=== PATIENT | male | born 1955 | race Two or more races ===

== ENCOUNTER → 2024-10-03 | Outpatient (CLI) | payer MEDICARE, BC, SELFPAY ==
[2024-10-03 09:50] LABS: Basophils # (Auto) 0.1 Thou/mm3 (0.0-0.2); Basophils % (Auto) 1 % (0-2.5); Eosinophils # (Auto) 0.4 Thou/mm3 (0.0-0.5); Eosinophils % (Auto) 5 % (0-10); Hematocrit 38.9 % (41.0-53.0); Hemoglobin 13.2 g/dL (13.5-16.0); Immature Granulocytes % (Auto) 1 % (0-0); Immature Granulocytes Auto 0.09 Thou/mm3 (0.00-0.00); Lymphocytes # (Auto) 1.2 Thou/mm3 (1.0-4.8); Lymphocytes % (Auto) 15 % (10-50); Mean Corpuscular HGB Conc 33.9 g/dl (31.0-37.0); Mean Corpuscular Volume 80 fL (80-100); Monocytes # (Auto) 0.5 Thou/mm3 (0.0-0.8); Monocytes % (Auto) 6 % (0-12); Neutrophils # (Auto) 5.7 Thou/mm3 (1.8-7.7); Neutrophils % (Auto) 72 % (37-80); Nucleated Red Blood Cell % 0 /100 WBC (0); Platelet Count 171 Thou/mm3 (140-440); RDW Standard Deviation 41.8 fL (35.1-43.9); Red Blood Count 4.89 Miln/mm3 (4.50-5.90); White Blood Count 7.8 Thou/mm3 (3.8-10.6)
[2024-10-03 10:09] LABS: Collection Type, Urine Clean Catch
[2024-10-03 10:11] LABS: Glucose Estimated Average 194 mg/dL (80-131); Hemoglobin A1C 8.4 % Hgb (4.8-6.0)
[2024-10-03 10:14] LABS: Albumin, Serum 4.5 gm/dL (3.4-4.8); Anion Gap 10 (7-16); BUN/Creatinine Ratio 19 Ratio (12-20); Blood Urea Nitrogen 31 mg/dL (9-23); Calcium 8.9 mg/dL (8.3-10.6); Calcium (Corrected) 8.9 mg/dL (8.5-10.1); Carbon Dioxide 26.2 mMol/L (20.0-31.0); Chloride 104 mMol/L (98-107); Creatinine (Component) 1.6 mg/dL (0.6-1.3); Glucose 155 mg/dL (74-106); Osmolality,Calculated 288 (275-295); Phosphorous 2.7 mg/dL (2.4-5.1); Potassium 4.6 mMol/L (3.4-5.1); Sodium 140 mMol/L (136-145); eGFR 47 See Note
[2024-10-03 11:03] LABS: Bilirubin,Urine Negative (Negative); Blood,Urine 1+ (Negative); Clarity,Urine Clear (Clear/Hazy); Color,Urine Lt-Yellow (Lt Yel-Yel); Glucose, Urine 2+ (Negative); Ketones,Urine Negative (Negative); Leukocyte Esterase,Urine Negative (Negative); Nitrite,Urine Negative (Negative); Protein,Urine 1+ (Neg - Trace); RBC,Urine 3 /hpf (0-3); Specific Gravity,Urine 1.019 (1.001-1.035); Squamous Epithelial Cell,Urine < 1 /hpf (0-5); Urobilinogen,Urine Negative mg/dL (0.0-1.0); WBC,Urine 1 /hpf (0-5)
[2024-10-03 11:05] LABS: Creatinine,Random Urine 101 mg/dL (30-125); Protein Total, Random Urine 110 mg/dL (1-14)
[2024-10-08 22:03] LABS: Albumin 4.1 g/dL (3.8-4.8); Alpha-1-Globulin 0.3 g/dL (0.2-0.3); Alpha-2-Globulin 0.8 g/dL (0.5-0.9); Beta-1-Globulin 0.4 g/dL (0.4-0.6); Beta-2-globulin 0.5 g/dL (0.2-0.5); Gamma Globulin 0.9 g/dL (0.8-1.7)
== END | disposition home or self-care (01) ==
PROVIDERS: PCP Internal Medicine; Referring Provider Internal Medicine Nephrology; Visit Provider Internal Medicine Nephrology
DX: R80.9 Proteinuria, unspecified (principal); E11.9 Type 2 diabetes mellitus without complications
CPT/HCPCS: 36415; 80069; 81001; 82570; 83036; 84155; 84156; 84165; 85025; 86334

== ENCOUNTER 2024-11-17 16:55 | Inpatient (IN) | payer MEDICARE, BC, SELFPAY ==
[2024-11-17 16:56] VITALS: BMI 41.6
[2024-11-17 17:04] VITALS: BP 116/74; PULSE 88; RESP 18; TEMP 36.5; O2SAT 99; BMI 34.7
--- NOTE | 2024-11-17 17:21 | XR_ITS ---
Examination: CT abdomen and pelvis without contrast. Coronal 3-D reconstructions. Sagittal 2-D reconstructions. Date and time of exam:November 17, 2024, 1829 hours Comparison February 20, 2020 INDICATIONS: Nausea vomiting diarrhea beginning 1500 hours today CTDI: vol (mGy): 11.3 DLP: (mGycm): 708 Technique: Axial images of the abdomen have been obtained, 3 mm slice thickness Intravenous contrast material has not been administered. Low dose protocols were performed. One or more of the following dose reduction techniques were used; automated exposure control, adjustment of the mA and/or KV according to patient size, use of iterative reconstruction technique. Findings: No focal liver or splenic lesions No gallstones No pancreatic mass Mild nodular thickening left adrenal gland Moderate renal parenchymal scar formation, 3 mm lower pole right renal calculus Perinephric stranding, no hydronephrosis or ureteral calculi Normal appendix No bowel obstruction Colonic diverticulosis, no diverticulitis Marked thickening of the urinary bladder wall up to 14 mm 7 mm bladder calculus Transverse posterior dimension 4.5 cm Transpedicular lumbar fusion L3-L5 with satisfactory alignment IMPRESSION: 3 mm lower pole right renal calculus, no hydronephrosis or ureteral calculi Moderate bilateral renal parenchymal scar formation Normal appendix 7 mm bladder calculus Marked thickening of the urinary bladder wall, differential would include cystitis Colonic diverticulosis, no diverticulitis
--- NOTE | 2024-11-17 17:22 | PD.EDRME ---
Rapid Medical Screening Exam RME Arrival date/time: 11/17/24 16:55 This is a case of 68-year-old male who came in in the emergency room due to abdominal pain nausea vomiting for 1 day patient have history of diabetes and gastroparesis Chief Complaint: Abdominal Pain Vital signs: Vital Signs Temperature 97.7 F 11/17/24 17:04 Pulse Rate 88 11/17/24 17:04 Respiratory Rate 18 11/17/24 17:04 Blood Pressure 116/74 11/17/24 17:04 Pulse Oximetry (%) 99 11/17/24 17:04 Oxygen Delivery Method Room Air 11/17/24 17:04
[2024-11-17] MEDS: ONDANSETRON INJ 2 MG/ML INJ 2 ML 4 MG IM (17:41)
[2024-11-17 18:01] LABS: Basophils # (Auto) 0.1 Thou/mm3 (0.0-0.2); Basophils % (Auto) 0 % (0-2.5); Eosinophils # (Auto) 0.2 Thou/mm3 (0.0-0.5); Eosinophils % (Auto) 1 % (0-10); Hematocrit 47.4 % (41.0-53.0); Hemoglobin 16.1 g/dL (13.5-16.0); Immature Granulocytes Auto 0.06 Thou/mm3 (0.00-0.00); Lymphocytes # (Auto) 0.5 Thou/mm3 (1.0-4.8); Lymphocytes % (Auto) 3 % (10-50); Mean Corpuscular HGB Conc 34.0 g/dl (31.0-37.0); Mean Corpuscular Hemoglobin 27.0 pg (25.0-35.0); Mean Corpuscular Volume 79 fL (80-100); Monocytes # (Auto) 0.7 Thou/mm3 (0.0-0.8); Monocytes % (Auto) 4 % (0-12); Neutrophils # (Auto) 15.1 Thou/mm3 (1.8-7.7); Neutrophils % (Auto) 92 % (37-80); Nucleated Red Blood Cell # 0.00 Thou/mm3 (0.00-0.00); Nucleated Red Blood Cell % 0 /100 WBC (0); Platelet Count 212 Thou/mm3 (140-440); RDW Standard Deviation 42.3 fL (35.1-43.9); Red Blood Count 5.97 Miln/mm3 (4.50-5.90); White Blood Count 16.5 Thou/mm3 (3.8-10.6)
[2024-11-17 18:18] LABS: Alanine Aminotransferase 45 U/L (10-49); Albumin, Serum 5.2 gm/dL (3.4-4.8); Albumin/Globulin Ratio 1.8 (1.2-2.2); Alkaline Phosphatase 110 U/L (46-116); Anion Gap 12 (7-16); Aspartate Amino Transferase 31 U/L (0-34); BUN/Creatinine Ratio 15 Ratio (12-20); Bilirubin,Total 0.5 mg/dL (0.3-1.2); Blood Urea Nitrogen 34 mg/dL (9-23); Calcium 11.0 mg/dL (8.3-10.6); Calcium (Corrected) 11.0 mg/dL (8.5-10.1); Carbon Dioxide 22.9 mMol/L (20.0-31.0); Chloride 101 mMol/L (98-107); Creatinine (Component) 2.2 mg/dL (0.6-1.3); Estimated Creatinine Clearance 36.1 mL/min (>60); Globulin 2.9 gm/dL (2.3-3.5); Glucose 220 mg/dL (74-106); Lipase 32 U/L (12-53); Osmolality,Calculated 286 (275-295); Potassium 5.2 mMol/L (3.4-5.1); Sodium 136 mMol/L (136-145); Total Protein 8.1 gm/dL (5.7-8.2); eGFR 32 See Note
[2024-11-17 18:28] LABS: Collection Type, Urine Clean Catch
[2024-11-17 18:35] LABS: Amorphous Crystals,Urine Present (Absent); Bacteria,Urine Rare; Bilirubin,Urine Negative (Negative); Blood,Urine 1+ (Negative); Clarity,Urine Turbid (Clear/Hazy); Color,Urine Yellow (Lt Yel-Yel); Glucose, Urine 1+ (Negative); Hyaline Casts,Urine < 1 /hpf (0-1); Ketones,Urine Negative (Negative); Leukocyte Esterase,Urine Negative (Negative); Nitrite,Urine Negative (Negative); PH,Urine 6.0 (5.0-7.0); Protein,Urine 2+ (Neg - Trace); RBC,Urine 6 /hpf (0-3); Specific Gravity,Urine 1.022 (1.001-1.035); Squamous Epithelial Cell,Urine < 1 /hpf (0-5); Urobilinogen,Urine Negative mg/dL (0.0-1.0); WBC,Urine 4 /hpf (0-5)
--- NOTE | 2024-11-17 21:59 | PC.NURSE ---
PT WAS BROUGHT TO ROOM 19 FROM ER LOBBY FOR RE EVALUATION.
--- NOTE | 2024-11-17 22:00 | PC.NURSE ---
PT CAME TO ER FOR C/O ABD PAIN AND N/V. PT SAID HE STARTED TAKING OZEMPIC .
[2024-11-17 22:06] VITALS: BP 136/72; PULSE 74; RESP 18; TEMP 36.8; O2SAT 95
--- NOTE | 2024-11-17 23:36 | PD.EDABDPN ---
ED Abdominal Pain RME/HPI General Chief Complaint: Abdominal Pain Stated complaint: abd. pain, n/vomiting since 2pm Time seen by provider: 11/17/24 17:23 Arrival date/time: 11/17/24 16:55 RME / HPI RME / HPI narrative: 11/17/24 16:55 This is a case of 68-year-old male who came in in the emergency room due to abdominal pain nausea vomiting for 1 day patient have history of diabetes and gastroparesis ------- Dr. Garnica?s Main ED Evaluation: 68yo male with a history of DMII, HTN, HLD, kidney stones presents to the ED for complaints of N/V x 1 day. Patient reports associated abdominal pain due to vomiting and diarrhea. Patient denies any fever, chills, back pain or any other associated symptoms. He does smoke tobacco. Denies any illicit drugs or alcohol use. Urologist is Dr. Nice. Church Organist is Dr. Chapman. NKA. Related Data Home Medications ?Medication ?Instructions ?Recorded ?Confirmed ezetimibe 10 mg tablet 10 mg PO QDAY 01/15/24 01/15/24 insulin glargine U-300 conc 300 120 unit subcut ACBR 01/15/24 01/15/24 unit/mL (1.5 mL) subcutaneous pen (Toujeo SoloStar U-300 Insulin) levothyroxine 25 mcg tablet 25 mcg PO QDAY 01/15/24 01/15/24 losartan 100 mg tablet 100 mg PO QDAY 01/15/24 01/15/24 metoprolol succinate 25 mg 25 mg PO QDAY 01/15/24 01/15/24 tablet,extended release 24 hr rosuvastatin 10 mg tablet 10 mg PO QDAY 01/15/24 01/15/24 sertraline 100 mg tablet 100 mg PO QDAY 01/15/24 01/15/24 Allergies Allergy/AdvReac Type Severity Reaction Status Date / Time No Known Allergies Allergy Verified 11/17/24 16:59 Review of Systems Review of Systems Systems Reviewed: All systems reviewed, normal except as documented Past Medical History Past Medical History NEUROLOGIC: Negative Seizures CARDIAC: Positive Hypertension; Negative Congestive Heart Failure RESPIRATORY: Negative Chronic Obstructive Pulmonary Disease (COPD) GENITOURINARY: Negative Renal Disease MUSCULOSKELETAL: Positive Musculoskeletal Disorders ENDOCRINE: Positive Endocrine Disorders and Diabetes Mellitus Type 2; Negative Diabetes Mellitus Type 1 OTHER HISTORY: Negative Blood Transfusions Social History SMOKING STATUS: Current every day smoker SUBSTANCE USE: does not use ED Exam Narrative Physical exam: GEN. APPEARANCE: The patient is alert awake oriented X-3 in no distress, lying down comfortably, does not look ill/toxic. Patient has good eye contact. Patient is cooperative. VITALS: All vitals were reviewed and the pulse ox is 95% on room air which is normal according to my interpretation. HEENT: Normocephalic, atraumatic. Pupils are equal and reactive. Oral mucosa is moist. Patent Nares NECK: Supple, nontender, no thyromegaly, no meningismus, no JVD CHEST: Symmetrical, atraumatic, and with equal expansion , Nontender on palpation no deformity and no crepitus. CARDIOVASCULAR: Heart regular rhythm no murmur or gallop rub or extra beats. LUNGS: Clear to auscultation bilaterally with symmetrical chest rise. No laboring tachypnea or wheezing. No intercostal subcostal retraction. No rales and no rhonchi. ABDOMEN: Soft, flat, nontender to palpation, no guarding or rebound tenderness. There are no abnormal masses palpated. Active and normal bowel sounds. EXTREMITIES: Nontender. No edema. No cyanosis. Patient is able to move all 4 extremities well, with full ROM and good CSM. SKIN: Warm and dry, no jaundice or rashes noted. NEURO: Patient is ACOSTA x 4, Cranial nerves II through XII grossly intact. There is no focal neurologic deficits noted. GCS is 15, PNS and FLIGHT COMMUNICATIONS OFFICER appear grossly intact. PSYCHIATRIC: Patient is in normal mood and affect. Course Quality Measures none Orders Category Date Time Status Admit to Inpatient Status Routine Admission 11/18/24 05:29 Active Patient Condition Routine Admission 11/18/24 05:29 Ordered Bedside Blood Glucose ACHS Care 11/18/24 05:29 Active COVID-19 Screening Questionnaire NOW Care 11/18/24 03:59 Active EKG (ED ONLY) *Do not use* NOW Care 11/18/24 04:35 Completed IV [Insert IV] NOW Care 11/17/24 23:31 Active Notify provider NEEDED Care 11/18/24 05:29 Active Strict Intake and Output Routine Care 11/18/24 05:30 Ordered Diet Renal Diet 06/30/[address] abdomen pelvis wo con Stat Exams 11/17/24 17:21 Completed EKG (ED Only) Stat Exams 11/18/24 04:35 Draft CBC AM DRAW Lab 11/19/24 05:00 Ordered CBC AM DRAW Lab 11/20/24 05:00 Ordered CBC AM DRAW Lab 11/21/24 05:00 Ordered CBC Stat Lab 11/17/24 17:48 Completed CMP [Comprehensive Metabolic Panel] Stat Lab 11/17/24 23:36 Completed Comprehensive Metabolic Panel AM DRAW Lab 11/19/24 05:00 Ordered Comprehensive Metabolic Panel AM DRAW Lab 11/20/24 05:00 Ordered Comprehensive Metabolic Panel AM DRAW Lab 11/21/24 05:00 Ordered Comprehensive Metabolic Panel Stat Lab 11/17/24 17:48 Completed Lipase Stat Lab 11/17/24 17:48 Completed Magnesium AM DRAW Lab 11/19/24 05:00 Ordered Magnesium AM DRAW Lab 11/20/24 05:00 Ordered Magnesium AM DRAW Lab 11/21/24 05:00 Ordered Urinalysis Stat Lab 11/17/24 18:13 Completed Urine Culture Routine Lab 11/18/24 05:32 Ordered ALBUTEROL RT 0.5ml [Proventil Rt 0.5ml] Med 11/18/24 03:12 Discontinued 10 mg INH X1 ONE ALBUTEROL RT 3ml [Proventil Rt 3ml] Med 11/18/24 02:34 Discontinued 2.5 mg INH X1 ONE Acetaminophen Tab [Tylenol Tab] Med 11/18/24 05:29 Ordered 650 mg PO Q6H PRN Calcium Gluc/Ns 1000MG Ivpb [Calcium Gluc/Ns 1000mg Med 11/18/24 02:35 Discontinued Ivpb] 1,000 mg in 50 ml IV X1 Calcium Gluconate 10% Inj Med 11/18/24 03:14 Discontinued 1 gm .ROUTE .STK-MED ONE Dextrose 50% Syr [D50w Syringe Abboject] Med 11/18/24 05:29 Ordered 25 ml IV Q15MIN PRN Dextrose 50% Syr [D50w Syringe Abboject] Med 11/18/24 05:29 Ordered 50 ml IV Q15MIN PRN Dextrose 50% Syr [D50w Syringe Abboject] Med 11/18/24 02:34 Discontinued 50 ml IV X1 ONE Glucagon Inj Med 11/18/24 05:29 Ordered 1 mg IM Q15MIN PRN HYDROcodone*/APAP 5/325 [Adams 5/325] Med 11/18/24 05:29 Ordered 1 tab PO Q4HR PRN Heparin Inj Med 11/18/24 06:00 Ordered 5,000 unit SC Q8HR INSULIN LISPRO (AdmeLOG) [HumaLOG] Med 11/18/24 07:30 Ordered See Protocol SC AC Insulin Regular Med 11/18/24 02:34 Discontinued 5 unit IV X1 ONE Ondansetron Inj [Zofran Inj] Med 11/17/24 17:21 Discontinued 4 mg IM X1 ONE Ondansetron Inj [Zofran Inj] Med 11/18/24 00:30 Discontinued 4 mg IVP X1 ONE Pantoprazole [Protonix] Med 11/18/24 09:00 Ordered 40 mg PO QDAY Ringers Lactated 1000 ml [Lactated Ringers] 1,000 ml Med 11/17/24 23:27 Discontinued IV 999 mls/hr Ringers Lactated 1000 ml [Lactated Ringers] 1,000 ml Med 11/17/24 23:34 Discontinued IV 999 mls/hr Sod Polystyrene Sulfon Susp [Kayexalate Susp] Med 11/18/24 02:34 Discontinued 15 gm PO X1 ONE Sodium Chloride 0.9% 1000 ml [Ns] 1,000 ml Med 11/18/24 05:30 Ordered IV 100 mls/hr Sodium Chloride Rt Joanne 0.9% [NS Rt Joanne 0.9%] Med 11/18/24 03:12 Active 3 ml INH PRN PRN cefTRIAXone/D5w 1gm IV premix [Rocephin/D5w 1gm IV Med 11/17/24 23:28 Discontinued premix] 1 gm in 50 ml IV NOW Code Status Routine Oth 11/18/24 05:29 Ordered Oxygen Delivery PRN RT 11/18/24 05:29 Active Vital Signs Vital signs: Vital Signs Temperature 97.7 F 11/17/24 17:04 Pulse Rate 88 11/17/24 17:04 Respiratory Rate 18 11/17/24 17:04 Blood Pressure 116/74 11/17/24 17:04 Pulse Oximetry (%) 99 11/17/24 17:04 Oxygen Delivery Method Room Air 11/17/24 17:04 Abdominal Pain MDM MDM Narrative MDM Narrative:: Scribe Attestation: 11/17/24 - I, Huong Higinio, am scribing for and in the presence of Dr. Garnica. Patient presents with abdominal discomfort. Vital signs and exam as listed. Concern for urinary tract infection, pancreatitis, urolithiasis, pyelonephritis among others. Ordered labs CT offered medication for symptom relief. Labs with leukocytosis 16.5 hemoglobin 16.1 patient has a left shift of 92%. Patient initial potassium 5.2, patient did receive fluids and antibiotics for urinary tract infection. Repeat potassium is 6.0. Ordered medications for management of hyperkalemia. Patient creatinine 2.3, worse than prior. Concern for acute on chronic kidney injury. Hypercalcemia resolved. Urinalysis with blood white blood cells and crystals. CT abdomen pelvis with evidence of diverticulosis, 3 mm lower pole right renal calculus, no hydronephrosis or ureteral calculi. Also has moderate bilateral renal parenchymal scar formation and a 7 mm bladder calculus. Patient also with thickening of the urinary bladder wall concerning for urinary tract infection. Antibiotics provided. Given worsening renal function, and hyperkalemia will discuss with patient's master naval parachutist and likely admit. Patient's urologist is Dr. Nice. Has not seen his urologist in at least a year, has a history of kidney stones. Attempted to call the patient's master naval parachutist, Dr. Chapman without success. I left a HIPAA compliant message. 0314: Discussed case with the resident physician, attending Dr. Tam from Hospitalist service regarding admission. Discussed patients ED course, exam findings, labs, and radiology results. The Hospitalist requests transferring the patient for urology. 0450: Discussed case with [facility]'s transfer center.. Discussed patients ED course, exam findings, labs, and radiology results. Awaiting callback. 0524: [facility] states the urologist, Dr. Armas, looked over this patient's case. Recommends having the patient follow-up as an outpatient due to the patient not having an obstructing stone or hydronephrosis. 0526: Discussed case with the resident physician, attending Dr. Tam from Hospitalist service regarding admission. Discussed patients ED course, exam findings, labs, and radiology results. The Hospitalist will accept the patient for admission. 0529: Discussed case with Dr. Chapman from nephrology regarding consultation. Discussed patients ED course, exam findings, labs, and radiology results. Does not have any other recommendations other than giving the patient IVF. Patient data External records reviewed:: [facility] previous records (Per chart review, patient has no relevant previous ED visits.) Clinical information provided by:: patient Social determinants that could affect healthcare access:: none Patient has the following chronic illnesses:: DMII, HTN, HLD, kidney stones How is presenting disease/condition affected by chronic disease/condition?: caused by Evaluation data The following diagnostics were reviewed and interpreted by me:: lab results, radiology exam(s) and EKG tracing(s) Lab and/or radiology exams considered but not ordered:: none Interpretation Summary: WBC 16.5, Potassium 5.2, Creatinine 2.2, BUN 34, Glucose 220, Calcium 11.0, Lipase normal, UA is positive for UTI. Repeat CMP shows Potassium 6.0, Creatinine 2.3, BUN 39, Glucose 231, Calcium 9.3. EKG done at 0520, NSR, rate of 95, normal intervals, nonspecific ST-T changes, no acute ischemia, according to my interpretation. 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 Record#: [id number] Birthdate: 1955 Age/Sex: 68 / M Location: [facility] Attending Dr: Ordering Physician: Camilla Mascorro Date of Service: 11/17/24 Procedure(s): CT abdomen pelvis wo [facility] Accession Number(s): [id number] cc: Edison Reese MD; NO PRIMARY/FAMILY,PHYSICIAN; Camilla Mascorro~ Examination: CT abdomen and pelvis without contrast. Coronal 3-D reconstructions. Sagittal 2-D reconstructions. Date and time of exam:November 17, 2024, 1829 hours Comparison February 20, 2020 INDICATIONS: Nausea vomiting diarrhea beginning 1500 hours today CTDI: vol (mGy): 11.3 DLP: (mGycm): 708 Technique: Axial images of the abdomen have been obtained, 3 mm slice thickness Intravenous contrast material has not been administered. Low dose protocols were performed. One or more of the following dose reduction techniques were used; automated exposure control, adjustment of the mA and/or KV according to patient size, use of iterative reconstruction technique. Findings: No focal liver or splenic lesions No gallstones No pancreatic mass Mild nodular thickening left adrenal gland Moderate renal parenchymal scar formation, 3 mm lower pole right renal calculus Perinephric stranding, no hydronephrosis or ureteral calculi Normal appendix No bowel obstruction Colonic diverticulosis, no diverticulitis Marked thickening of the urinary bladder wall up to 14 mm 7 mm bladder calculus Transverse posterior dimension 4.5 cm Transpedicular lumbar fusion L3-L5 with satisfactory alignment IMPRESSION: 3 mm lower pole right renal calculus, no hydronephrosis or ureteral calculi Moderate bilateral renal parenchymal scar formation Normal appendix 7 mm bladder calculus Marked thickening of the urinary bladder wall, differential would include cystitis Colonic diverticulosis, no diverticulitis Dictated By: Edison Reese MD Signed By: <Electronically signed by Edison Reese MD in OV> 11/17/24 191 Medications / Prescriptions Medications or Prescriptions considered but not ordered:: none Medication administrations:: Medication Administration History Acetaminophen (Acetaminophen 325 Mg Tablet) 650 mg PO Q6H PRN PRN Reason: Fever >100.4 Stop: 12/18/24 05:28 Hydrocodone Bitart/Acetaminophen (Hydrocodone/Apap 5/325 Tablet) 1 tab PO Q4HR PRN PRN Reason: PAIN SCALE 4-6 (Moderate Stop: 11/23/24 05:28 Dextrose (Dextrose 50%-Water Inj 50 Ml Syringe) 25 ml IV Q15MIN PRN PRN Reason: BG 50-70 responsive npo pt Stop: 12/18/24 05:28 Dextrose (Dextrose 50%-Water Inj 50 Ml Syringe) 50 ml IV Q15MIN PRN PRN Reason: BG <50 OR BG <70 & pt unresponsive Stop: 12/18/24 05:28 Heparin Sodium (Porcine) (Heparin Sod Inj 5000 Unit/Ml Vial) 5,000 unit SC Q8HR YEIMI Stop: 12/02/24 05:59 Sodium Chloride (Ns) 1,000 mls @ 100 mls/hr IV .Q10H YEIMI Stop: 11/18/24 15:29 Pantoprazole Sodium (Pantoprazole 40 Mg Tablet) 40 mg PO QDAY YEIMI Stop: 12/18/24 08:59 Sodium Chloride (Sodium Chloride Rt Joanne 0.9% 3 Ml Nebu) 3 ml INH PRN PRN PRN Reason: SOLN Stop: 12/18/24 03:11 Last Admin: 11/18/24 03:17 Dose: 3 ml Documented By: Discontinued Medications Albuterol (Albuterol Rt 2.5 Mg/3 Ml Nebu) 2.5 mg INH X1 ONE Stop: 11/18/24 02:35 Last Admin: 11/18/24 03:29 Dose: Not Given Documented By: CVL Non-Admin Reason: Cancelled by Provider Albuterol (Albuterol Rt 2.5 Mg/0.5 Ml Nebu) 10 mg INH X1 ONE Stop: 11/18/24 03:13 Last Admin: 11/18/24 03:17 Dose: 10 mg Documented By: Calcium Gluconate (Calcium Gluconate 10% Inj 1 Gm/10 Ml Vial) Confirm Administered Dose 1 gm .ROUTE .STK-MED ONE Stop: 11/18/24 03:15 Last Admin: 11/18/24 03:28 Dose: Not Given Documented By: CVL Non-Admin Reason: Duplicate Medication on eMAR Dextrose (Dextrose 50%-Water Inj 50 Ml Syringe) 50 ml IV X1 ONE Stop: 11/18/24 02:35 Last Admin: 11/18/24 03:05 Dose: 50 ml Documented By: CVL Comments: IV lock at right FA, PUSHED FOR 5 MIN Lactated Ringer's (Lactated Ringers) 1,000 mls @ 999 mls/hr IV .Q1H1M ONE Stop: 11/18/24 00:27 Last Infusion: 11/18/24 01:24 Dose: Infused Documented By: Admin: 11/18/24 00:14 Dose: 999 mls/hr Documented By: CVL Ceftriaxone Sodium/Dextrose (Rocephin/D5w 1gm Iv Premix) 1 gm in 50 mls @ 100 mls/hr IV NOW ONE Stop: 11/17/24 23:57 Last Infusion: 11/18/24 00:13 Dose: Infused Documented By: Admin: 11/17/24 23:46 Dose: 100 mls/hr Documented By: CVL Lactated Ringer's (Lactated Ringers) 1,000 mls @ 999 mls/hr IV .Q1H1M ONE Stop: 11/18/24 00:34 Last Infusion: 11/18/24 00:40 Dose: Infused Documented By: Admin: 11/17/24 23:44 Dose: 999 mls/hr Documented By: CVL Calcium Gluconate/Sodium Chloride (Calcium Gluc/Ns 1000mg Ivpb) 1,000 mg in 50 mls @ 50 mls/hr IV X1 ONE Stop: 11/18/24 03:34 Last Infusion: 11/18/24 04:29 Dose: Infused Documented By: Admin: 11/18/24 03:27 Dose: 50 mls/hr Documented By: CVL Insulin Human Regular (Insulin Hum Regular 1 Unit/0.01 Ml (Per Unit)) 5 unit IV X1 ONE Stop: 11/18/24 02:35 Last Admin: 11/18/24 03:11 Dose: 5 unit Documented By: CVL Co-signed By: KATELYN Comments: IV LOCK AT RIGHT FA, PUSHED BY 1 MIN. Ondansetron HCl (Ondansetron Inj 2 Mg/Ml Inj 2 Ml) 4 mg IM X1 ONE; Protocol Stop: 11/17/24 17:22 Last Admin: 11/17/24 17:41 Dose: 4 mg Documented By: Ondansetron HCl (Ondansetron Inj 2 Mg/Ml Inj 2 Ml) 4 mg IVP X1 ONE; Protocol Stop: 11/18/24 00:31 Last Admin: 11/18/24 00:37 Dose: 4 mg Documented By: CVL Sodium Polystyrene Sulfonate (Sod Polystyrene Sulfon Susp 15 Gm/60 Ml Btl) 15 gm PO X1 ONE Stop: 11/18/24 02:35 Last Admin: 11/18/24 03:05 Dose: 15 gm Documented By: CVL see above Consultations Consultation(s) initiated? (list below): Yes Diagnosis Differential diagnosis abdominal pain: pancreatitis and other (metabolic disturbance, pyelonephritis, gastroparesis, dehydration) Most likely diagnosis given after review of the tests above:: acute on chronic renal failure, hyperkalemia Admission Indicated Admission indicated?: indicated Admission Request Was there a request for admission?: Yes Admission Attestation Admission request attestation: Discussed case with [] from Hospitalist service regarding admission. Discussed patients ED course, exam findings, labs, and radiology results. The Hospitalist [agrees,declines] to accept the patient for admission. Disposition Plan Disposition Plan: Admit Critical Care Time Critical Care Time Critical Care Time: Yes Total Critical Care Time (min.): 40 Attestation: The high probability of sudden, clinically significant deterioration in the patient?s condition required the highest level of my preparedness to intervene urgently. The services I provided to this patient were to treat and/or prevent clinically significant deterioration. Services included the following: chart data review, reviewing nursing notes and/or old charts, documentation time, sales enablement consultant collaboration regarding findings and treatment options, medication orders and management, direct patient care, vital sign assessments and ordering, interpreting and reviewing diagnostic studies and lab tests. Aggregate critical care time includes only time during which I was engaged in work directly related to the patient?s care, as described above, whether at bedside or elsewhere in the Emergency Department. It did not include time spent performing other reported procedures or the services of residents, students, nurses or physician assistants. Discharge Plan Plan Patient Disposition: Admit Acute Care w/in Hospital Prescriptions/Referrals Prescriptions/Med Rec: No Action sertraline 100 mg tablet 100 mg PO QDAY levothyroxine 25 mcg tablet 25 mcg PO QDAY metoprolol succinate 25 mg tablet extended release 24 hr 25 mg PO QDAY losartan 100 mg tablet 100 mg PO QDAY ezetimibe 10 mg tablet 10 mg PO QDAY rosuvastatin 10 mg tablet 10 mg PO QDAY insulin glargine U-300 conc [Toujeo SoloStar U-300 Insulin] 300 unit/mL (1.5 mL) insulin pen 120 unit SUBCUT ACBR Referrals: No Primary/Family,Physician [Primary Care Provider] - In 1 week Problem List Clinical Impression: Acute on chronic renal failure, Kidney stone, Bladder stone, Hyperkalemia, Cystitis Patient/Caregiver Discharge Instructions Print Language: Hungarian Stand Alone Forms: [facility] Award Info., Patient Portal Info Letter
[2024-11-17] MEDS: RINGERS LACTATED 1000 ML 1,000 ML 999 ML IV (23:44)
[2024-11-17] MEDS: cefTRIAXone/D5w 1gm IV premix 1 GM/50 ML BAG IV (23:46)
[2024-11-18] VITALS (20 sets, daily range): BP systolic 119–145; BP diastolic 64–82; PULSE 70–99; RESP 15–96; TEMP 36.3–36.8; O2SAT 92–99; BMI 35.5
[2024-11-18] MEDS: RINGERS LACTATED 1000 ML 1,000 ML 999 ML IV (00:14)
[2024-11-18] MEDS: ONDANSETRON INJ 2 MG/ML INJ 2 ML 4 MG IVP (00:37)
[2024-11-18 02:06] LABS: Alanine Aminotransferase 34 U/L (10-49); Albumin, Serum 4.2 gm/dL (3.4-4.8); Albumin/Globulin Ratio 1.6 (1.2-2.2); Alkaline Phosphatase 86 U/L (46-116); Anion Gap 7 (7-16); Aspartate Amino Transferase 20 U/L (0-34); BUN/Creatinine Ratio 17 Ratio (12-20); Bilirubin,Total 0.3 mg/dL (0.3-1.2); Blood Urea Nitrogen 39 mg/dL (9-23); Calcium 9.3 mg/dL (8.3-10.6); Calcium (Corrected) 9.3 mg/dL (8.5-10.1); Carbon Dioxide 26.3 mMol/L (20.0-31.0); Chloride 106 mMol/L (98-107); Creatinine (Component) 2.3 mg/dL (0.6-1.3); Estimated Creatinine Clearance 34.5 mL/min (>60); Globulin 2.6 gm/dL (2.3-3.5); Glucose 231 mg/dL (74-106); Osmolality,Calculated 293 (275-295); Potassium 6.0 mMol/L (3.4-5.1); Sodium 139 mMol/L (136-145); Total Protein 6.8 gm/dL (5.7-8.2); eGFR 31 See Note
[2024-11-18] MEDS: DEXTROSE 50%-WATER INJ 50 ML SYRINGE IV (03:05)
[2024-11-18] MEDS: SOD POLYSTYRENE SULFON SUSP 15 GM/60 ML BTL PO (03:05)
[2024-11-18] MEDS: INSULIN HUM REGULAR 1 UNIT/0.01 ML (PER UNIT) 5 UNIT IV (03:11)
[2024-11-18] MEDS: SODIUM CHLORIDE RT SOL 0.9% 3 ML NEBU INH (03:17)
[2024-11-18] MEDS: ALBUTEROL RT 2.5 MG/0.5 ML NEBU 10 MG INH (03:17)
[2024-11-18] MEDS: CALCIUM GLUC/NS 1000MG IVPB 1,000 MG/50 ML BAG 50 MG IV (03:27)
--- NOTE | 2024-11-18 04:12 | PC.NURSE ---
[facility] contacted for possible UROLOGY transfer. They state they do not have urology on board at the moment.
--- NOTE | 2024-11-18 04:35 | EKG_ITS ---
[facility] Test Date: 2024-11-18 Pat Name: BROOKE DRAPER Department: Room: - Gender: Male Brakes Inspector: : 1955 Requested By: Angeline Barth Order Number: [id number] Reading MD: Angeline Barth Measurements Intervals [place] Rate: 95 P: 50 CO: 174 QRS: -19 QRSD: 105 T: 55 QT: 357 QTc: 449 Interpretive Statements SINUS RHYTHM NONSPECIFIC T-WAVE ABNORMALITY Compared to ECG 11/25/2021 11:45:11 T-wave abnormality now present Myocardial infarct finding no longer present /store/S0/[id number].pdf
--- NOTE | 2024-11-18 04:35 | PC.NURSE ---
[facility] contacted for possible urology transfer they stated they are able to contact urology after 0700.
--- NOTE | 2024-11-18 05:36 | PD.RESHP ---
Documentation for date of: 11/18/24 HPI History of Present Illness Chief complaint: Abd pain, N/V History of present illness: 68-year-old male with past medical history of DM2, hypertension, hyperlipidemia, kidney stones, diverticulosis, esophageal ulcers, gastritis, and CKD was admitted to the hospital on 11/18/2024 after coming to the ED with chief complaints of abdominal pain along with vomiting and diarrhea. On assessment patient stated that his abdominal pain has subsided and that it has started yesterday around 2 PM after he took a dose of a free sample of Ozempic. He said that he was very nauseated and that he started having abdominal pain and then proceeded to have vomiting as well as diarrhea. He denies any blood in the vomit or diarrhea. He mentioned that he did not eat anything out of the ordinary and that he has not had any sick contacts. Patient stated that he has been having some increased urination and that his urine turned brownish in color sometimes and then proceeded back to clearing. He denies having any chest pain, shortness of breath, flank pain, or lower extremity swelling. ED stated that patient was hyperkalemic and patient got the hyperkalemia cocktail and given patient's AMNA they consulted nephrology who stated that patient should be getting IV fluids, but nothing otherwise. Patient was also found to have 2 kidney stones 1 in the bladder and 1 in the right lower pole therefore ED physician spoke with urology who stated that patient's symptoms were nonobstructing at this time and could follow-up outpatient. ED course: Initially came in afebrile and normotensive. Labs were relevant for leukocytosis, hyperkalemia, AMNA, and UA positive for bacteria and blood. Initial imaging included abdomen/pelvis CT that showed a 3 mm right lower pole calculus with no hydronephrosis or ureteral calculi, 7 mm bladder calculus, and perinephric stranding. In the ED patient received IV fluids ceftriaxone and hyperkalemia cocktail. PMH: As above Social Hx: Admits smoking, denies any illicit drugs, admits social drinking. Surgical Hx: Back surgery Allergies: NKDA Review of Systems Review of Systems Systems Reviewed: All systems reviewed, normal except as documented Past Medical History Past Medical History NEUROLOGIC: Negative Seizures CARDIAC: Positive Hypertension; Negative Congestive Heart Failure RESPIRATORY: Negative Chronic Obstructive Pulmonary Disease (COPD) GENITOURINARY: Negative Renal Disease MUSCULOSKELETAL: Positive Musculoskeletal Disorders ENDOCRINE: Positive Endocrine Disorders and Diabetes Mellitus Type 2; Negative Diabetes Mellitus Type 1 OTHER HISTORY: Negative Blood Transfusions Social History SMOKING STATUS: Current every day smoker SUBSTANCE USE: does not use Exam Vital Signs Temp Pulse Resp BP Pulse Ox O2 Del Method 98.3 F 94 18 145/76 H 92 L Room Air 11/18/24 05:00 11/18/24 05:00 11/18/24 05:00 11/18/24 05:00 11/18/24 05:00 11/18/24 05:00 Narrative Exam General: A/O x3, no acute distress Eyes: PERRL, EOMI. Anicteric, vision grossly intact. Ears: No ear pain, no ear discharge, Hearing grossly intact. Nose: No nasal discharge. Mouth/Throat: Moist mucous membranes, no redness, no lesions. Neck: Neck supple, non-tender, no cervical lymphadenopathy. Lungs: Clear PETEY to auscultation and percussion, No accessory muscle use. Cardio: Normal S1/S2, regular rhythm, no murmurs, no JVD Abdomen: Soft, non-tender, no palpable masses, peristalsis present, no guarding or rebound. Extremities: Symmetrical, no significant deformities, no peripheral edema , non-tender, peripheral pulses presents. Skin: No rashes, no lesions, warm to touch. Neuro: No focal neurological deficits. motor and sensory intact Psych: Cooperative, appropriate mood and effect. Results: Labs 11/17/24 17:48 11/18/24 01:38 Labs: Short CBC 11/17/24 Range/Units 17:48 WBC 16.5 H (3.8-10.6) Thou/mm3 Hgb 16.1 H (13.5-16.0) g/dL Hct 47.4 (41.0-53.0) % Plt Count 212 (140-440) Thou/mm3 BMP 11/17/24 11/18/24 17:48 01:38 Sodium 136 139 Potassium 5.2 H 6.0 H D Chloride 101 106 Carbon Dioxide 22.9 26.3 BUN 34 H 39 H Creatinine 2.2 H 2.3 H Glucose 220 H 231 H Calcium 11.0 H 9.3 D Liver Function 11/17/24 11/18/24 Range/Units 17:48 01:38 Total Bilirubin 0.5 0.3 (0.3-1.2) mg/dL AST 31 20 (0-34) U/L ALT 45 34 (10-49) U/L Alkaline Phosphatase 110 86 D (46-116) U/L Albumin 5.2 H 4.2 D (3.4-4.8) gm/dL Urine 11/17/24 Range/Units 18:13 Urine Color Yellow (Lt Yel-Yel) Urine Clarity Turbid A (Clear/Hazy) Urine pH 6.0 (5.0-7.0) Ur Specific [place] 1.022 (1.001-1.035) Urine Protein 2+ A (Neg - Trace) Urine Glucose (UA) 1+ A (Negative) Quality Measures Quality Measures none Advance care planning discussed with:: patient Medications Home Medications and Allergies Home Medications ?Medication ?Instructions ?Recorded ?Confirmed ?Type ezetimibe 10 mg tablet 10 mg PO QDAY 01/15/24 01/15/24 History insulin glargine U-300 conc 300 120 unit subcut ACBR 01/15/24 01/15/24 History unit/mL (1.5 mL) subcutaneous pen (Toujeo SoloStar U-300 Insulin) levothyroxine 25 mcg tablet 25 mcg PO QDAY 01/15/24 01/15/24 History losartan 100 mg tablet 100 mg PO QDAY 01/15/24 01/15/24 History metoprolol succinate 25 mg 25 mg PO QDAY 01/15/24 01/15/24 History tablet,extended release 24 hr rosuvastatin 10 mg tablet 10 mg PO QDAY 01/15/24 01/15/24 History sertraline 100 mg tablet 100 mg PO QDAY 01/15/24 01/15/24 History Allergies Allergy/AdvReac Type Severity Reaction Status Date / Time No Known Allergies Allergy Verified 11/17/24 16:59 Visit Medications Acetaminophen (Acetaminophen 325 Mg Tablet) 650 mg PO Q6H PRN PRN Reason: Fever >100.4 Stop: 12/18/24 05:28 Hydrocodone Bitart/Acetaminophen (Hydrocodone/Apap 5/325 Tablet) 1 tab PO Q4HR PRN PRN Reason: PAIN SCALE 4-6 (Moderate Stop: 11/23/24 05:28 Dextrose (Dextrose 50%-Water Inj 50 Ml Syringe) 25 ml IV Q15MIN PRN PRN Reason: BG 50-70 responsive npo pt Stop: 12/18/24 05:28 Dextrose (Dextrose 50%-Water Inj 50 Ml Syringe) 50 ml IV Q15MIN PRN PRN Reason: BG <50 OR BG <70 & pt unresponsive Stop: 12/18/24 05:28 Glucagon (Glucagon Inj 1 Mg Vial) 1 mg IM Q15MIN PRN PRN Reason: BG <70, and no IV access Heparin Sodium (Porcine) (Heparin Sod Inj 5000 Unit/Ml Vial) 5,000 unit SC Q8HR YEIMI Stop: 12/02/24 05:59 Sodium Chloride (Ns) 1,000 mls @ 100 mls/hr IV .Q10H YEIMI Stop: 11/18/24 15:29 Piperacillin/Tazobactam/Dextrose (Zosyn) 50 mls @ 100 mls/hr IV Q8HR YEIMI Stop: 11/25/24 05:34 Insulin Human Lispro (Insulin Lispro (Admelog) 1 Unit/0.01 Ml Unit) 0 unit SC AC [facility]; Protocol Stop: 12/18/24 07:29 Pantoprazole Sodium (Pantoprazole 40 Mg Tablet) 40 mg PO QDAY YEIMI Stop: 12/18/24 08:59 Sodium Chloride (Sodium Chloride Rt Joanne 0.9% 3 Ml Nebu) 3 ml INH PRN PRN PRN Reason: SOLN Stop: 12/18/24 03:11 Last Admin: 11/18/24 03:17 Dose: 3 ml Discontinued Medications Albuterol (Albuterol Rt 2.5 Mg/3 Ml Nebu) 2.5 mg INH X1 ONE Stop: 11/18/24 02:35 Last Admin: 11/18/24 03:29 Dose: Not Given Albuterol (Albuterol Rt 2.5 Mg/0.5 Ml Nebu) 10 mg INH X1 ONE Stop: 11/18/24 03:13 Last Admin: 11/18/24 03:17 Dose: 10 mg Dextrose (Dextrose 50%-Water Inj 50 Ml Syringe) 50 ml IV X1 ONE Stop: 11/18/24 02:35 Last Admin: 11/18/24 03:05 Dose: 50 ml Lactated Ringer's (Lactated Ringers) 1,000 mls @ 999 mls/hr IV .Q1H1M ONE Stop: 11/18/24 00:27 Last Infusion: 11/18/24 01:24 Dose: Infused Ceftriaxone Sodium/Dextrose (Rocephin/D5w 1gm Iv Premix) 1 gm in 50 mls @ 100 mls/hr IV NOW ONE Stop: 11/17/24 23:57 Last Infusion: 11/18/24 00:13 Dose: Infused Lactated Ringer's (Lactated Ringers) 1,000 mls @ 999 mls/hr IV .Q1H1M ONE Stop: 11/18/24 00:34 Last Infusion: 11/18/24 00:40 Dose: Infused Calcium Gluconate/Sodium Chloride (Calcium Gluc/Ns 1000mg Ivpb) 1,000 mg in 50 mls @ 50 mls/hr IV X1 ONE Stop: 11/18/24 03:34 Last Infusion: 11/18/24 04:29 Dose: Infused Insulin Human Regular (Insulin Hum Regular 1 Unit/0.01 Ml (Per Unit)) 5 unit IV X1 ONE Stop: 11/18/24 02:35 Last Admin: 11/18/24 03:11 Dose: 5 unit Ondansetron HCl (Ondansetron Inj 2 Mg/Ml Inj 2 Ml) 4 mg IM X1 ONE; Protocol Stop: 11/17/24 17:22 Last Admin: 11/17/24 17:41 Dose: 4 mg Ondansetron HCl (Ondansetron Inj 2 Mg/Ml Inj 2 Ml) 4 mg IVP X1 ONE; Protocol Stop: 11/18/24 00:31 Last Admin: 11/18/24 00:37 Dose: 4 mg Sodium Polystyrene Sulfonate (Sod Polystyrene Sulfon Susp 15 Gm/60 Ml Btl) 15 gm PO X1 ONE Stop: 11/18/24 02:35 Last Admin: 11/18/24 03:05 Dose: 15 gm Assessment & Plan Plan 68-year-old male with past medical history of DM2, hypertension, hyperlipidemia, kidney stones, diverticulosis, esophageal ulcers, gastritis, and CKD was admitted to the hospital on 11/18/2024 for pyelonephritis, AMNA, and hyperkalemia. #Pyelonephritis #Complicated UTI #Nonobstructing nephrolithiasis #Hx of kidney stones Patient came in with some complaints of darkening urine and increased urination, but no burning sensation during urination. Patient had a subpar CT that showed a 7 mm right lower pole calculi without any hydronephrosis and a 7 mm bladder calculi as well and also mentioned perinephric stranding. Patient does have a WBC elevation at 16.5 UA was positive for bacteria and blood. ED spoke with urology who stated that the patient just requires outpatient follow-up for his stones as these were nonobstructing. Plan: Zosyn Urine culture [place] and Tylenol for pain Strict CHRIS's IV fluids Will continue to monitor #AMNA on CKD Patient states that he has been seeing his engineering specialist technician who stated that his kidney function has worsened lately. Patient's creatinine today was 2.3 from previously was 1.6 Plan: Avoid nephrotoxic agents Renally dose medication Consider nephrology consult #Electrolyte imbalance #Hyperkalemia Patient's potassium was initially 5.2 and then increased to 6 Patient got hyperkalemia cocktail in the ED EKG did not show any peaked T waves Plan: Will repeat CMP to monitor potassium levels #Nausea and vomiting #Abdominal pain Patient had multiple episodes of nausea and vomiting on the day prior to admission Patient does not recall any changes in diet Patient could be having some gastroparesis in the setting of longstanding uncontrolled diabetes Plan: Will hold off on Zofran or Reglan at this time given that patient's nausea and vomiting has improvement patient's EKG that showed a QTc of 449. #DM2 Patient's last A1c was 8.4 ISS hypoglycemia protocol ordered Disposition: Patient admitted to [facility]. Diet: Renal, carb low GI prophylaxis: protonix DVT prophylaxis: heparin subcu Code: Full Case disclosed with Attending Dr. Sukhwinder Newton PGY1 Disclaimer: Even though this this note was dictated by speech recognition and even though it was carefully revised there may still be minor errors in clinical analyst due to voice recognition software. Attending Provider Attestation/Addendum 68-year-old male patient with diabetes mellitus, hypertension, hyperlipidemia, hypothyroidism, chronic kidney disease, kidney stones is being admitted for pyelonephritis. The patient also has cystitis. He has nonobstructing kidney stones. Patient was initially presented to [facility] for urology evaluation later declined and recommended for outpatient follow-up. The patient has chronic kidney disease. He has been followed by Dr Chapman his engineering specialist technician. The patient will be admitted for treatment of UTI, cystitis. His blood pressure is not well-controlled. He denies chest pain. He has no headache. Patient will be admitted for further evaluation & management. I discussed with and supervised the resident physician who took care of this patient. I agree with the assessment and plan as above.
--- NOTE | 2024-11-18 05:42 | PC.NURSE ---
Nelly from [facility] reached back and informed us that their urologist on board MD Donald Armas suggests out patient follow up. Due to no obstructing stone or hydronephrosis. She has submitted the paper work and they are to reach out to him for an appointment. MD Garnica made aware.
[2024-11-18] MEDS: PIPER/TAZO 3.375 GM PREMIX 3.375 GM/50 ML BAG IV (05:53)
[2024-11-18] MEDS: SODIUM CHLORIDE 0.9% 1000 ML 1,000 ML 100 ML IV (05:53)
[2024-11-18] MEDS: HEPARIN SOD INJ 5000 UNIT/ML VIAL SC ×2 (05:56→21:32)
[2024-11-18 06:58] LABS: Basophils # (Auto) 0.0 Thou/mm3 (0.0-0.2); Basophils % (Auto) 0 % (0-2.5); Eosinophils # (Auto) 0.1 Thou/mm3 (0.0-0.5); Eosinophils % (Auto) 1 % (0-10); Hematocrit 39.0 % (41.0-53.0); Hemoglobin 13.0 g/dL (13.5-16.0); Immature Granulocytes Auto 0.03 Thou/mm3 (0.00-0.00); Lymphocytes # (Auto) 0.5 Thou/mm3 (1.0-4.8); Lymphocytes % (Auto) 5 % (10-50); Mean Corpuscular HGB Conc 33.3 g/dl (31.0-37.0); Mean Corpuscular Hemoglobin 26.3 pg (25.0-35.0); Mean Corpuscular Volume 79 fL (80-100); Monocytes # (Auto) 0.5 Thou/mm3 (0.0-0.8); Monocytes % (Auto) 5 % (0-12); Neutrophils # (Auto) 9.6 Thou/mm3 (1.8-7.7); Neutrophils % (Auto) 90 % (37-80); Nucleated Red Blood Cell # 0.00 Thou/mm3 (0.00-0.00); Nucleated Red Blood Cell % 0 /100 WBC (0); Platelet Count 175 Thou/mm3 (140-440); RDW Standard Deviation 42.9 fL (35.1-43.9); Red Blood Count 4.95 Miln/mm3 (4.50-5.90); White Blood Count 10.7 Thou/mm3 (3.8-10.6)
[2024-11-18 07:14] LABS: Alanine Aminotransferase 33 U/L (10-49); Albumin, Serum 4.2 gm/dL (3.4-4.8); Albumin/Globulin Ratio 1.5 (1.2-2.2); Alkaline Phosphatase 87 U/L (46-116); Anion Gap 9 (7-16); Aspartate Amino Transferase 21 U/L (0-34); BUN/Creatinine Ratio 17 Ratio (12-20); Bilirubin,Total 0.4 mg/dL (0.3-1.2); Blood Urea Nitrogen 38 mg/dL (9-23); Calcium 9.4 mg/dL (8.3-10.6); Calcium (Corrected) 9.4 mg/dL (8.5-10.1); Carbon Dioxide 24.2 mMol/L (20.0-31.0); Chloride 105 mMol/L (98-107); Creatinine (Component) 2.3 mg/dL (0.6-1.3); Estimated Creatinine Clearance 34.5 mL/min (>60); Globulin 2.8 gm/dL (2.3-3.5); Glucose 229 mg/dL (74-106); Osmolality,Calculated 291 (275-295); Potassium 4.3 mMol/L (3.4-5.1); Sodium 138 mMol/L (136-145); Total Protein 7.0 gm/dL (5.7-8.2); eGFR 31 See Note
--- NOTE | 2024-11-18 10:48 | PC.CC ---
ASW completed an initial assessment with pt and ex- Georgette Angel [phone] was present. Georgette reported that the pt is his own decision maker but in the event that the pt is unable to make his own decisions, Georgette Angel will be is his decision maker. Pt resides at home and completes his own ADLs. Pt does not use any type of DME. Pt is not conserved nor does he have a Power of Product Development Chemist in place. Pts PCP is Dr. Lund, pharmacy of choice is [facility]. Pt is a Full Code. Pt will return home upon d/c from the hospital. Pt has strong family support and reports he is able to care for himself, but will reach out to family if need be for assistance. Pt confirmed demographics and reports his cell phone number is [phone].
[2024-11-18] MEDS: INSULIN LISPRO (AdmeLOG) 1 UNIT/0.01 ML UNIT SC ×2 (12:07→17:16)
[2024-11-18] MEDS: PANTOPRAZOLE 40 MG TABLET PO (12:09)
--- NOTE | 2024-11-18 14:47 | ESPR_ITS ---
Documentation for date of: 11/18/24 Subjective Subjective Interval history: Pt is an overnight admit. Pt is seen and examined at bedside this morning. Patient's vitals are stable currently saturating on room air. Denies any shortness of breath or chest pain patient endorses to resolution of nausea vomiting and denies any abdominal or flank pain. Patient also denies any dysuria or urinary urgency. Patient follows Dr Chapman outpatient however he is unsure of if he has CKD or not but does note that he has some sort of a kidney disease. Labs are significant for BUN 38, creatinine 2.3, GFR 31 and blood glucose is 229. Patient takes concentrated glargine 120 units daily. Will start lantus 30 units BID and continue to monitor BG. Patient has no other complaints. Exam Vital Signs Temp Pulse Resp BP Pulse Ox O2 Del Method 98.0 F 78 20 132/80 H 95 Room Air 11/18/24 12:34 11/18/24 12:34 11/18/24 12:34 11/18/24 12:34 11/18/24 12:34 11/18/24 12:34 Narrative Exam GENERAL: A&Ox3 . Awake, Not in acute distress NEURO: no focal neurological deficits HEENT: Atraumatic, Normocephalic. mucous membranes moist. Eyes open, symmetrical, & clear HEART: Normal Heart Sounds LUNGS: Clear to auscultation with no wheezing or crackles. ABDOMEN: soft, non-distended, non-tender, bowel sounds heard, no guarding or rebound tenderness SKIN: No Rash or ecchymoses EXTREMITIES: No edema, tenderness, able to move all 4 extremities, pedal pulses palpated Objective Labs 11/18/24 06:16 11/18/24 05:36 Labs: Laboratory Results - last 24 hr 11/17/24 11/17/24 11/18/24 17:48 18:13 01:38 WBC 16.5 H RBC 5.97 H Hgb 16.1 H Hct 47.4 MCV 79 L MCH 27.0 MCHC 34.0 RDW Std Deviation 42.3 Plt Count 212 Neut % (Auto) 92 H Lymph % (Auto) 3 L [place] % (Auto) 4 Eos % (Auto) 1 Baso % (Auto) 0 Neut # (Auto) 15.1 H Lymph # (Auto) 0.5 L [place] # (Auto) 0.7 Eos # (Auto) 0.2 Baso # (Auto) 0.1 Immature Gran # (Auto) 0.06 H Absolute Nucleated RBC 0.00 Immature Gran % 0 Nucleated RBC % 0 Sodium 136 139 Potassium 5.2 H 6.0 H D Chloride 101 106 Carbon Dioxide 22.9 26.3 Anion Gap 12 7 BUN 34 H 39 H Creatinine 2.2 H 2.3 H Estim Creat Clear Calc 36.1 L 34.5 L eGFR 32 L 31 L BUN/Creatinine Ratio 15 17 Glucose 220 H 231 H Calculated Osmolality 286 293 Calcium 11.0 H 9.3 D Corrected Calcium 11.0 H 9.3 D Total Bilirubin 0.5 0.3 AST 31 20 ALT 45 34 Alkaline Phosphatase 110 86 D Total Protein 8.1 6.8 Albumin 5.2 H 4.2 D Globulin 2.9 2.6 Albumin/Globulin Ratio 1.8 1.6 Lipase 32 Ur Collection Type Clean Catch Urine Color Yellow Urine Clarity Turbid A Urine pH 6.0 Ur Specific [place] 1.022 Urine Protein 2+ A Urine Glucose (UA) 1+ A Urine Ketones Negative Urine Blood 1+ A Urine Nitrite Negative Urine Bilirubin Negative Urine Urobilinogen (Auto) Negative Ur Leukocyte Esterase Negative Urine RBC 6 H Urine WBC 4 Ur Squamous Epith Cells < 1 Amorphous Crystals Present A Urine Bacteria Rare Hyaline Casts < 1 11/18/24 11/18/24 05:36 06:16 WBC 10.7 H D RBC 4.95 Hgb 13.0 L D Hct 39.0 L MCV 79 L MCH 26.3 MCHC 33.3 RDW Std Deviation 42.9 Plt Count 175 D Neut % (Auto) 90 H Lymph % (Auto) 5 L [place] % (Auto) 5 Eos % (Auto) 1 Baso % (Auto) 0 Neut # (Auto) 9.6 H Lymph # (Auto) 0.5 L [place] # (Auto) 0.5 Eos # (Auto) 0.1 Baso # (Auto) 0.0 Immature Gran # (Auto) 0.03 H Absolute Nucleated RBC 0.00 Immature Gran % 0 Nucleated RBC % 0 Sodium 138 Potassium 4.3 D Chloride 105 Carbon Dioxide 24.2 Anion Gap 9 BUN 38 H Creatinine 2.3 H Estim Creat Clear Calc 34.5 L eGFR 31 L BUN/Creatinine Ratio 17 Glucose 229 H Calculated Osmolality 291 Calcium 9.4 Corrected Calcium 9.4 Total Bilirubin 0.4 AST 21 ALT 33 Alkaline Phosphatase 87 Total Protein 7.0 Albumin 4.2 Globulin 2.8 Albumin/Globulin Ratio 1.5 Lipase Ur Collection Type Urine Color Urine Clarity Urine pH Ur Specific [place] Urine Protein Urine Glucose (UA) Urine Ketones Urine Blood Urine Nitrite Urine Bilirubin Urine Urobilinogen (Auto) Ur Leukocyte Esterase Urine RBC Urine WBC Ur Squamous Epith Cells Amorphous Crystals Urine Bacteria Hyaline Casts Quality Measures Quality Measures none Advance care planning discussed with:: patient Assessment & Plan Assessment Current Active Medications: Generic Name Dose Route Start Last Admin Trade Name Freq PRN Reason Stop Dose Admin Acetaminophen 650 mg 11/18/24 05:29 Acetaminophen 325 Mg Tablet PO 12/18/24 05:28 Q6H PRN Fever >100.4 Hydrocodone Bitart/Acetaminophen 1 tab 11/18/24 05:29 Hydrocodone/Apap 5/325 Tablet PO 11/23/24 05:28 Q4HR PRN PAIN SCALE 4-6 (Moderate Dextrose 25 ml 11/18/24 05:29 Dextrose 50%-Water Inj 50 Ml Syringe IV 12/18/24 05:28 Q15MIN PRN BG 50-70 responsive npo pt Dextrose 50 ml 11/18/24 05:29 Dextrose 50%-Water Inj 50 Ml Syringe IV 12/18/24 05:28 Q15MIN PRN BG <50 OR BG <70 & pt unresponsive Glucagon 1 mg 11/18/24 05:29 Glucagon Inj 1 Mg Vial IM Q15MIN PRN BG <70, and no IV access Heparin Sodium (Porcine) 5,000 unit 11/18/24 21:00 Heparin Sod Inj 5000 Unit/Ml Vial SC 12/02/24 20:59 Q12HR YEIMI Sodium Chloride 1,000 mls @ 100 mls/hr 11/18/24 05:30 11/18/24 05:53 Ns IV 11/18/24 15:29 100 mls/hr .Q10H YEIMI Administration Ceftriaxone Sodium/Dextrose 1 gm in 50 mls @ 100 mls/hr 11/19/24 16:00 Rocephin/D5w 1gm Iv Premix IV 11/26/24 15:59 QDAY YEIMI Insulin Glargine 30 unit 11/18/24 21:00 Insulin Glargine (Lantus) 5 Unit/0.05 Ml (Per 5 Units) SC 12/18/24 20:59 BID YEIMI Insulin Human Lispro 0 unit 11/18/24 07:30 11/18/24 12:07 Insulin Lispro (Admelog) 1 Unit/0.01 Ml Unit SC 12/18/24 07:29 1 unit AC YEIMI Administration Protocol Pantoprazole Sodium 40 mg 11/18/24 09:00 11/18/24 12:09 Pantoprazole 40 Mg Tablet PO 12/18/24 08:59 40 mg QDAY YEIMI Administration Sodium Chloride 3 ml 11/18/24 03:12 11/18/24 03:17 Sodium Chloride Rt Joanne 0.9% 3 Ml Nebu INH 12/18/24 03:11 3 ml PRN PRN Administration SOLN Plan Mr. Angel is a 68-year-old male with past medical history of DM2, hypertension, hyperlipidemia, kidney stones, diverticulosis, esophageal ulcers, gastritis, and CKD was admitted to the hospital on 11/18/2024 for pyelonephritis, AMNA, and hyperkalemia. #AMNA on CKD #Nausea and vomiting- resolved #Abdominal pain #Diarrhea Patient's baseline creatinine os 1.6 and on admission creatinin is 2.3 and GFR 31 Likely prerenal due to dehydration in the setting of nausea/vomiting and diarrhea Patient states that he has been seeing his ssrs report developer Dr. Chapman who stated that his kidney function has worsened lately. Patient had multiple episodes of nausea and vomiting and diarrhea on the day prior to admission, likely secondary to ozempic Plan: -Pt received 3L IV fluids on admission -Avoid nephrotoxic agents -Renally dose medication -Will consider nephrology consult if pt has no improvement in kidney function #Acute Pyelonephritis #Nonobstructing nephrolithiasis #7mm bladder calculi #Hx of kidney stones Patient came in with some complaints of darkening urine and increased urination, but no burning sensation during urination. CT Abdomen/Pelvis showed a 7 mm right lower pole calculi without any hydronephrosis and a 7 mm bladder calculi as well and also mentioned perinephric stranding. Patient does have a WBC elevation at 16.5 on admission which down trended to 10.7 UA was positive for rare bacteria and blood. ED spoke with urology who stated that the patient just requires outpatient follow-up for his stones as these were nonobstructing. Plan: -Pt is given Zosyn in the ED -Start ceftriaxone 11/18- -Urine cultures ordered -[place] and Tylenol for pain -Strict CHRIS's -IV fluids given -Will continue to monitor daily labs #Hyperkalemia- resolved Patient's potassium was initially 5.2 and then increased to 6 Patient got hyperkalemia cocktail in the ED EKG did not show any peaked T waves Plan: -Closely monitor daily CMP #Insulin dependent type ll Diabetes -A1c on 10/03/24 8.4 -Pt uses Glargine 120 daily -Lantus 30 units BID ordered -Insulin Sliding scale ordered with Accu-Cheks -Hypoglycemia protocol ordered Health maintenance Disposition: Patient admitted to [facility]. Diet: Renal, carb low GI prophylaxis: protonix DVT prophylaxis: heparin subcu Code: Full Assessment and plan discussed with my attending physician Dr. Camilo Alatorre (PGY-1)- Internal medicine resident Attending Provider Attestation/Addendum I have discussed and was present for the essential components of the history, physical examination, diagnosis, and treatment plan with the resident. I agree with the patient's care as documented by the resident and amended herein by me. Canelo Page DO. Patient seen and evaluated this AM. No acute events overnight, patient afebrile on room air, SpO2 95%. Significant labs include a downtrending WBC to 10.7, hemoglobin 13, BUN 38 and creatinine flat at 2.3, baseline appears to be approximately 1.6. Will continue IVF and broad-spectrum antibiotics which I have changed to ceftriaxone today. Will adjust according to urine culture which is pending. May consider nephrology consult if no further improvement seen with renal function, this is possibly his new baseline. Will continue to monitor closely while he is here. Although this document has been carefully reviewed, there may still be some phonetic and other typographical errors. These errors are purely grammatical due to imperfections in the software program and should not be construed in any way to compromise the substance of the patient's medical care during this visit.
[2024-11-19] VITALS (8 sets, daily range): BP systolic 112–135; BP diastolic 56–76; PULSE 70–88; RESP 16–96; TEMP 36.1–36.9; O2SAT 93–97
[2024-11-19 06:55] LABS: Alanine Aminotransferase 31 U/L (10-49); Albumin, Serum 4.2 gm/dL (3.4-4.8); Albumin/Globulin Ratio 1.6 (1.2-2.2); Alkaline Phosphatase 85 U/L (46-116); Anion Gap 7 (7-16); Aspartate Amino Transferase 26 U/L (0-34); BUN/Creatinine Ratio 18 Ratio (12-20); Basophils # (Auto) 0.0 Thou/mm3 (0.0-0.2); Basophils % (Auto) 0 % (0-2.5); Bilirubin,Total 0.5 mg/dL (0.3-1.2); Blood Urea Nitrogen 35 mg/dL (9-23); Calcium 9.2 mg/dL (8.3-10.6); Calcium (Corrected) 9.2 mg/dL (8.5-10.1); Carbon Dioxide 27.9 mMol/L (20.0-31.0); Chloride 106 mMol/L (98-107); Creatinine (Component) 1.9 mg/dL (0.6-1.3); Eosinophils # (Auto) 0.1 Thou/mm3 (0.0-0.5); Eosinophils % (Auto) 2 % (0-10); Estimated Creatinine Clearance 42.3 mL/min (>60); Globulin 2.7 gm/dL (2.3-3.5); Glucose 151 mg/dL (74-106); Hematocrit 39.9 % (41.0-53.0); Hemoglobin 13.2 g/dL (13.5-16.0); Immature Granulocytes Auto 0.02 Thou/mm3 (0.00-0.00); Lymphocytes # (Auto) 1.0 Thou/mm3 (1.0-4.8); Lymphocytes % (Auto) 13 % (10-50); Magnesium 1.9 mg/dL (1.6-2.6); Mean Corpuscular HGB Conc 33.1 g/dl (31.0-37.0); Mean Corpuscular Hemoglobin 26.6 pg (25.0-35.0); Mean Corpuscular Volume 80 fL (80-100); Monocytes # (Auto) 0.5 Thou/mm3 (0.0-0.8); Monocytes % (Auto) 7 % (0-12); Neutrophils # (Auto) 6.0 Thou/mm3 (1.8-7.7); Neutrophils % (Auto) 78 % (37-80); Nucleated Red Blood Cell # 0.00 Thou/mm3 (0.00-0.00); Nucleated Red Blood Cell % 0 /100 WBC (0); Osmolality,Calculated 292 (275-295); Platelet Count 165 Thou/mm3 (140-440); Potassium 5.1 mMol/L (3.4-5.1); RDW Standard Deviation 43.4 fL (35.1-43.9); Red Blood Count 4.97 Miln/mm3 (4.50-5.90); Sodium 141 mMol/L (136-145); Total Protein 6.9 gm/dL (5.7-8.2); White Blood Count 7.7 Thou/mm3 (3.8-10.6); eGFR 38 See Note
[2024-11-19] MEDS: INSULIN LISPRO (AdmeLOG) 1 UNIT/0.01 ML UNIT SC ×2 (07:55→17:47)
[2024-11-19] MEDS: INSULIN GLARGINE (Lantus) 5 UNIT/0.05 ML (PER 5 UNITS) 30 UNIT SC (08:42)
[2024-11-19] MEDS: HEPARIN SOD INJ 5000 UNIT/ML VIAL SC ×2 (08:43→21:42)
[2024-11-19] MEDS: PANTOPRAZOLE 40 MG TABLET PO (08:43)
--- NOTE | 2024-11-19 14:54 | ESPR_ITS ---
Documentation for date of: 11/19/24 Subjective Subjective Interval history: Patient evaluated at the bedside, no active complaints, patient was educated regarding presence of bladder stone and renal calculus. Reported that he had a previous diagnosis of renal calculus and has seen Dr. Nice in the past though has not followed up for many years. Noted improvement in serum creatinine creatinine 1.9, compared to 2.3. Pending a urine culture, anticipate discharge tomorrow on p.o. antibiotics Exam Vital Signs Temp Pulse Resp BP Pulse Ox O2 Del Method 97.1 F 88 18 132/76 H 97 Room Air 11/19/24 12:00 11/19/24 12:00 11/19/24 12:00 11/19/24 12:00 11/19/24 12:00 11/19/24 12:00 Narrative Exam GENERAL: A&Ox3 . Awake, Not in acute distress NEURO: no focal neurological deficits HEENT: Atraumatic, Normocephalic. mucous membranes moist. Eyes open, symmetrical, & clear HEART: Normal Heart Sounds LUNGS: Clear to auscultation with no wheezing or crackles. ABDOMEN: soft, non-distended, non-tender, bowel sounds heard, no guarding or rebound tenderness SKIN: No Rash or ecchymoses EXTREMITIES: No edema, tenderness, able to move all 4 extremities, pedal pulses palpated Objective Labs 11/20/24 05:41 11/20/24 05:41 Labs: Laboratory Results - last 24 hr 11/19/24 05:19 WBC 7.7 RBC 4.97 Hgb 13.2 L Hct 39.9 L MCV 80 MCH 26.6 MCHC 33.1 RDW Std Deviation 43.4 Plt Count 165 Neut % (Auto) 78 Lymph % (Auto) 13 [place] % (Auto) 7 Eos % (Auto) 2 Baso % (Auto) 0 Neut # (Auto) 6.0 Lymph # (Auto) 1.0 Gilmer # (Auto) 0.5 Eos # (Auto) 0.1 Baso # (Auto) 0.0 Immature Gran # (Auto) 0.02 H Absolute Nucleated RBC 0.00 Immature Gran % 0 Nucleated RBC % 0 Sodium 141 Potassium 5.1 D Chloride 106 Carbon Dioxide 27.9 Anion Gap 7 BUN 35 H Creatinine 1.9 H Estim Creat Clear Calc 42.3 L eGFR 38 L BUN/Creatinine Ratio 18 Glucose 151 H D Calculated Osmolality 292 Calcium 9.2 Corrected Calcium 9.2 Magnesium 1.9 Total Bilirubin 0.5 AST 26 ALT 31 Alkaline Phosphatase 85 Total Protein 6.9 Albumin 4.2 Globulin 2.7 Albumin/Globulin Ratio 1.6 Quality Measures Quality Measures none Advance care planning discussed with:: patient Assessment & Plan Assessment Current Active Medications: Generic Name Dose Route Start Last Admin Trade Name Freq PRN Reason Stop Dose Admin Acetaminophen 650 mg 11/18/24 05:29 Acetaminophen 325 Mg Tablet PO 12/18/24 05:28 Q6H PRN Fever >100.4 Hydrocodone Bitart/Acetaminophen 1 tab 11/18/24 05:29 Hydrocodone/Apap 5/325 Tablet PO 11/23/24 05:28 Q4HR PRN PAIN SCALE 4-6 (Moderate Dextrose 25 ml 11/18/24 05:29 Dextrose 50%-Water Inj 50 Ml Syringe IV 12/18/24 05:28 Q15MIN PRN BG 50-70 responsive npo pt Dextrose 50 ml 11/18/24 05:29 Dextrose 50%-Water Inj 50 Ml Syringe IV 12/18/24 05:28 Q15MIN PRN BG <50 OR BG <70 & pt unresponsive Glucagon 1 mg 11/18/24 05:29 Glucagon Inj 1 Mg Vial IM Q15MIN PRN BG <70, and no IV access Heparin Sodium (Porcine) 5,000 unit 11/18/24 21:00 11/19/24 08:43 Heparin Sod Inj 5000 Unit/Ml Vial SC 12/02/24 20:59 5,000 unit Q12HR YEIMI Administration Ceftriaxone Sodium/Dextrose 1 gm in 50 mls @ 100 mls/hr 11/19/24 16:00 Rocephin/D5w 1gm Iv Premix IV 11/26/24 15:59 QDAY YEIMI Insulin Glargine 30 unit 11/18/24 21:00 11/19/24 08:42 Insulin Glargine (Lantus) 5 Unit/0.05 Ml (Per 5 Units) SC 12/18/24 20:59 30 unit BID YEIMI Administration Insulin Human Lispro 0 unit 11/18/24 07:30 11/19/24 12:00 Insulin Lispro (Admelog) 1 Unit/0.01 Ml Unit SC 12/18/24 07:29 Not Given AC [facility] Protocol Pantoprazole Sodium 40 mg 11/18/24 09:00 11/19/24 08:43 Pantoprazole 40 Mg Tablet PO 12/18/24 08:59 40 mg QDAY YEIMI Administration Sodium Chloride 3 ml 11/18/24 03:12 11/18/24 03:17 Sodium Chloride Rt Joanne 0.9% 3 Ml Nebu INH 12/18/24 03:11 3 ml PRN PRN Administration SOLN Plan Mr. Angel is a 68-year-old male with past medical history of DM2, hypertension, hyperlipidemia, kidney stones, diverticulosis, esophageal ulcers, gastritis, and CKD was admitted to the hospital on 11/18/2024 for pyelonephritis, AMNA, and hyperkalemia. 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 Chapman who stated that his kidney function has worsened lately. Patient had multiple episodes of nausea and vomiting and diarrhea on the day prior to admission, likely secondary to ozempic Plan: -Pt received 3L IV fluids on admission -Avoid nephrotoxic agents -Renally dose medication -Will consider nephrology consult if pt has no improvement in kidney function #Acute Pyelonephritis #Nonobstructing nephrolithiasis #7mm bladder calculi #Hx of kidney stones Patient came in with some complaints of darkening urine and increased urination, but no burning sensation during urination. CT Abdomen/Pelvis showed a 7 mm right lower pole calculi without any hydronephrosis and a 7 mm bladder calculi as well and also mentioned perinephric stranding. Patient does have a WBC elevation at 16.5 on admission which down trended to 10.7 UA was positive for rare bacteria and blood. ED spoke with urology who stated that the patient just requires outpatient follow-up for his stones as these were nonobstructing. Plan: -Pt is given Zosyn in the ED -Start ceftriaxone 11/18- -Urine cultures ordered -[place] and Tylenol for pain -Strict CHRIS's -IV fluids given -Will continue to monitor daily labs - Follow-up with Dr. Nice outpatient #Hyperkalemia- resolved Patient's potassium was initially 5.2 and then increased to 6 Patient got hyperkalemia cocktail in the ED EKG did not show any peaked T waves Plan: -Closely monitor daily CMP #Insulin dependent type ll Diabetes -A1c on 10/03/24 8.4 -Pt uses Glargine 120 daily -Lantus 30 units BID ordered -Insulin Sliding scale ordered with Accu-Cheks -Hypoglycemia protocol ordered Health maintenance Disposition: Patient admitted to [facility]. Diet: Renal, carb low GI prophylaxis: protonix DVT prophylaxis: heparin subcu Code: Full Assessment and plan discussed with my attending physician Dr. Camilo Sam PGY2 Attending Provider Attestation/Addendum I have discussed and was present for the essential components of the history, physical examination, diagnosis, and treatment plan with the resident. I agree with the patient's care as documented by the resident and amended herein by me. Canelo Page DO. Although this document has been carefully reviewed, there may still be some phonetic and other typographical errors. These errors are purely grammatical due to imperfections in the software program and should not be construed in any way to compromise the substance of the patient's medical care during this visit.
[2024-11-19] MEDS: cefTRIAXone/D5w 1gm IV premix 1 GM/50 ML BAG IV (17:45)
[2024-11-20] VITALS: BP 122/76; PULSE 77; PULSE 79; RESP 17; TEMP 36.1; O2SAT 95
[2024-11-20 04:00] VITALS: BP 122/64; PULSE 75; PULSE 81; RESP 18; TEMP 36.2; O2SAT 94
[2024-11-20 06:08] LABS: Basophils # (Auto) 0.0 Thou/mm3 (0.0-0.2); Basophils % (Auto) 0 % (0-2.5); Eosinophils # (Auto) 0.2 Thou/mm3 (0.0-0.5); Eosinophils % (Auto) 3 % (0-10); Hematocrit 38.6 % (41.0-53.0); Hemoglobin 12.9 g/dL (13.5-16.0); Immature Granulocytes Auto 0.02 Thou/mm3 (0.00-0.00); Lymphocytes # (Auto) 1.1 Thou/mm3 (1.0-4.8); Lymphocytes % (Auto) 14 % (10-50); Mean Corpuscular HGB Conc 33.4 g/dl (31.0-37.0); Mean Corpuscular Hemoglobin 26.3 pg (25.0-35.0); Mean Corpuscular Volume 79 fL (80-100); Monocytes # (Auto) 0.7 Thou/mm3 (0.0-0.8); Monocytes % (Auto) 9 % (0-12); Neutrophils # (Auto) 5.6 Thou/mm3 (1.8-7.7); Neutrophils % (Auto) 74 % (37-80); Nucleated Red Blood Cell # 0.00 Thou/mm3 (0.00-0.00); Nucleated Red Blood Cell % 0 /100 WBC (0); Platelet Count 145 Thou/mm3 (140-440); RDW Standard Deviation 41.9 fL (35.1-43.9); Red Blood Count 4.91 Miln/mm3 (4.50-5.90); White Blood Count 7.5 Thou/mm3 (3.8-10.6)
[2024-11-20 07:32] LABS: Alanine Aminotransferase 34 U/L (10-49); Albumin, Serum 4.1 gm/dL (3.4-4.8); Albumin/Globulin Ratio 1.5 (1.2-2.2); Alkaline Phosphatase 91 U/L (46-116); Anion Gap 9 (7-16); Aspartate Amino Transferase 27 U/L (0-34); BUN/Creatinine Ratio 16 Ratio (12-20); Bilirubin,Total 0.4 mg/dL (0.3-1.2); Blood Urea Nitrogen 28 mg/dL (9-23); Calcium 8.9 mg/dL (8.3-10.6); Calcium (Corrected) 8.9 mg/dL (8.5-10.1); Carbon Dioxide 26.0 mMol/L (20.0-31.0); Chloride 104 mMol/L (98-107); Creatinine (Component) 1.8 mg/dL (0.6-1.3); Estimated Creatinine Clearance 44.7 mL/min (>60); Globulin 2.7 gm/dL (2.3-3.5); Glucose 120 mg/dL (74-106); Magnesium 1.8 mg/dL (1.6-2.6); Osmolality,Calculated 284 (275-295); Phosphorous 3.1 mg/dL (2.4-5.1); Potassium 4.2 mMol/L (3.4-5.1); Sodium 139 mMol/L (136-145); Total Protein 6.8 gm/dL (5.7-8.2); eGFR 41 See Note
[2024-11-20 08:00] VITALS: BP 134/81; PULSE 81; PULSE 86; RESP 18; TEMP 36.2; O2SAT 94
[2024-11-20] MEDS: INSULIN GLARGINE (Lantus) 5 UNIT/0.05 ML (PER 5 UNITS) 30 UNIT SC (08:40)
[2024-11-20] MEDS: HEPARIN SOD INJ 5000 UNIT/ML VIAL SC (08:41)
[2024-11-20] MEDS: PANTOPRAZOLE 40 MG TABLET PO (08:41)
[2024-11-20] MEDS: cefTRIAXone/D5w 1gm IV premix 1 GM/50 ML BAG IV (08:41)
[2024-11-20 08:45] VITALS: PULSE 56; RESP 18; RESP 93
--- NOTE | 2024-11-20 09:14 | PC.SS ---
Follow up note: Trending AMNA. Uring cultures pending. On IV antibiotic. Pt will return home upon dc.
--- NOTE | 2024-11-20 10:44 | PC.SS ---
Late 11-19-24: SS met with patient regarding his d/c plan.? Pt is alert/oriented.? Pt was admitted for Pyelonephritis And AMNA.? Pt confirmed demographic and contact information is correct on facesheet.? Pt resides alone? Pt ambulates independently without assistance or DME.? Pt is ok with all ADLs.? Patient?s pharmacy of choice is [facility].? Pt named his ex , Georgette Angel medical decision maker if he is unable.? SS provided verbal choices for d/c to home or SNF.? Patient?s choice is to return home upon d/c.? Pt states he is diabetic, has glucometer, and test strips.? Pt states he takes insulin injections for his diabetes.? Pt followed up with PCP 1 month ago.is. D/C plan:? Return home Next of Kin:? ?Georgette Angel, ex , phone# [phone] PCP:? Dr. Kevon Sheehan, ex , phone# [phone] Address:? Correct on facesheet
[2024-11-20 11:35] VITALS: BP 130/79; PULSE 84; RESP 20; TEMP 36.2; O2SAT 95
--- NOTE | 2024-11-20 15:57 | PC.DIETICIAN ---
Nutrition education Prior to discharge, the patient requested education on dietary management of CKD. Written material (ALM CKD Stage 3-5 Nutrition Therapy) was provided for future reference. Pt showed good understanding of recommendations; time for questions was allowed and doubts were clarified.
--- NOTE | 2024-11-20 17:47 | ESDS_ITS ---
Planned Discharge Date 11/20/24 DS: Providers Provider Date of admission: 11/18/24 05:29 Primary care physician: Physician No Primary/Family Admitting Provider: Andrés Pretty MD Attending Provider on Admission: Vladimir Page DO Attending Provider on DC: Vladimir Page DO Discharging Provider: Beatrice Sam MD DS: Diagnosis Problem List Completed Was Problem List Reviewed/Reconciled?: Yes Hospital Course Hospital Course Hospital course: Mr. Angel is a 68-year-old male with past medical history of DM2, hypertension, hyperlipidemia, kidney stones, diverticulosis, esophageal ulcers, gastritis, and CKD was admitted to the hospital on 11/18/2024 for pyelonephritis, acute kidney injury, and hyperkalemia. Acute kidney injury likely related to prerenal azotemia in the setting of dehydration due to vomiting and diarrhea. 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 CT abdomen pelvis showed 7 mm right lower pole calculi without any hydronephrosis and 7 mm bladder calculi as well as perinephric stranding. Noted to have WBC elevation 16.5 on admission which down trended during hospital stay. Urinalysis positive for bacteria and blood. During hospital stay noted improvement in patient's acute kidney injury, creatinine closer to baseline. Patient was started on IV Zosyn, later switched to ceftriaxone, urine cultures unable to grow a pathogen. Patient stayed afebrile, able to take p.o. medications, and ambulatory, patient will be discharged on p.o. antibiotics to complete treatment for complicated UTI/pyelonephritis. Follow-up with your urologist within 1 week of discharge from the hospital, you have been started on antibiotic Augmentin for complicated urine tract infection to be continued for 8 more days. Please use the strainer when urinating to catch any stones and to be sent for analysis later. Follow up with Primary care physician with labs within 3-5 days of discharge. If symptoms persist or worsen, return to the Emergency Department. Problems: #AMNA on CKD #Nausea and vomiting- resolved #Abdominal pain #Diarrhea #Acute Pyelonephritis #Nonobstructing nephrolithiasis #7mm bladder calculi #Hx of kidney stones #Hyperkalemia- resolved #Insulin dependent type ll Diabetes Assessment and plan discussed with my attending physician Dr. Camilo Sam PGY3 Status at Discharge Overall status at discharge: patient is progressing back to baseline Time Spent with Patient Time attestation: Total time spent providing and/or coordinating discharge services: Time spent: Greater than 30 minutes Exam Vital Signs Temp Pulse Resp BP Pulse Ox O2 Del Method 97.1 F 84 20 130/79 95 Room Air 11/20/24 11:35 11/20/24 11:35 11/20/24 11:35 11/20/24 11:35 11/20/24 11:35 11/20/24 11:35 Narrative Exam GENERAL: A&Ox3 . Awake, Not in acute distress NEURO: no focal neurological deficits HEENT: Atraumatic, Normocephalic. mucous membranes moist. Eyes open, symmetrical, & clear HEART: Normal Heart Sounds LUNGS: Clear to auscultation with no wheezing or crackles. ABDOMEN: soft, non-distended, non-tender, bowel sounds heard, no guarding or rebound tenderness SKIN: No Rash or ecchymoses EXTREMITIES: No edema, tenderness, able to move all 4 extremities, pedal pulses palpated Discharge Plan Plan Patient Disposition: HOME (Self Care) Patient condition on transfer: Stable and Benefits outweigh risks Care Plan Goals: Follow-up with your urologist within 1 week of discharge from the hospital, you have been started on antibiotic Augmentin for complicated urine tract infection to be continued for 8 more days. Please use the strainer when urinating to catch any stones and to be sent for analysis later. Follow up with Primary care physician with labs within 3-5 days of discharge. If symptoms persist or worsen, return to the Emergency Department. Prescriptions/Referrals Prescriptions/Med Rec: New amoxicillin-pot clavulanate 875-125 mg tablet 1 tab PO BID 8 Days Qty: 16 0RF Continued sertraline 100 mg tablet 100 mg PO QDAY levothyroxine 25 mcg tablet 25 mcg PO ACBR metoprolol succinate 25 mg tablet extended release 24 hr 25 mg PO QDAY losartan 100 mg tablet 100 mg PO QDAY ezetimibe 10 mg tablet 10 mg PO QDAY rosuvastatin 10 mg tablet 10 mg PO QDAY insulin glargine U-300 conc [Toujeo SoloStar U-300 Insulin] 300 unit/mL (1.5 mL) insulin pen 120 unit SUBCUT ACBR metoclopramide HCl 5 mg tablet 5 mg PO QDAY omeprazole 40 mg capsule,delayed release(DR/EC) 40 mg PO QDAY Referrals: [facility] [Outside] Maximino Nice MD [Physician] - No Primary/Family,Physician [Primary Care Provider] - Patient/Caregiver Discharge Instructions Education Materials: Healthy Kidneys, Kidney Disease: Eating Less Sodium, Preventing Kidney Stones, Acute Kidney Failure Dc, ED Pyelonephritis, Male (Adult) Print Language: New Zealander Stand Alone Forms: Raiza Award Info., Patient Portal Info Letter Discharge Order Discharge Orders: Discharge (Routine); Ordered 11/20/24 Ordered By: Beatrice Sam Quality Discharge Quality Measures VTE prophylaxis MD Attestestation MD Attestation I have discussed and was present for the essential components of the discharge history, physical examination, diagnosis, and discharge treatment plan with the resident. I agree with the patient's discharge care as documented by the resident and amended herein by me. Canelo Page, . Urine cultures resulted on day of discharge and are unremarkable however will discharge patient on a short course of Augmentin just to be on the safe side for any pyelonephritis. The patient was stable, afebrile, tolerating p.o. intake and ambulatory at time of discharge home. The patient understood all discharge instructions, all questions were answered satisfactorily. The patient was instructed to return to the Emergency Department is symptoms worsened or persisted. Although this document has been carefully reviewed, there may still be some phonetic and other typographical errors. These errors are purely grammatical due to imperfections in the software program and should not be construed in any way to compromise the substance of the patient's medical care during this visit.
== END 2024-11-20 11:50 | disposition home or self-care (01) | DRG 690 ==
LOC: SERX 11-18 05:32 → SERHOLD 11-18 05:37 → S3NX 11-18 12:24
PROVIDERS: Nurse Practitioner Family; Admitting Provider Internal Medicine; Emergency Provider Emergency Medicine; Visit Provider Student in an Organized Health Care Education/Training Program
DX: N10 Acute pyelonephritis (principal); N12 Tubulo-interstitial nephritis, not specified as acute or chronic; N18.9 Chronic kidney disease, unspecified; E11.22 Type 2 diabetes mellitus with diabetic chronic kidney disease; E11.43 Type 2 diabetes mellitus with diabetic autonomic (poly)neuropathy; I12.9 Hypertensive chronic kidney disease with stage 1 through stage 4 chronic kidney disease, or unspecified chronic kidney disease; N20.0 Calculus of kidney; K31.84 Gastroparesis; E78.5 Hyperlipidemia, unspecified; E87.5 Hyperkalemia; N17.9 Acute kidney failure, unspecified; N21.0 Calculus in bladder; F17.200 Nicotine dependence, unspecified, uncomplicated; N30.90 Cystitis, unspecified without hematuria; E86.0 Dehydration; K57.30 Diverticulosis of large intestine without perforation or abscess without bleeding; Z87.442 Personal history of urinary calculi; E11.65 Type 2 diabetes mellitus with hyperglycemia; E83.52 Hypercalcemia; Z79.4 Long term (current) use of insulin; Z79.890 Hormone replacement therapy; Z87.19 Personal history of other diseases of the digestive system; Z79.899 Other long term (current) drug therapy
CPT/HCPCS: 36415; 74176; 80053; 81001; 83690; 83735; 84100; 85025; 87086; 93005; 93225; 94640; 96361; 96365; 96367; 96372; 96375; 99291; J0613; J0696; J1644; J1815; J2405; J2543; J7030; J7120; A9270

== ENCOUNTER → 2025-01-13 | Outpatient (CLI) | payer MEDICARE, BC, SELFPAY ==
[2025-01-13 13:36] LABS: Misc Send Out* See Sep Rpt
== END | disposition home or self-care (01) ==
LOC: SLDO 13:17
PROVIDERS: Referring Provider Nurse Practitioner Family; Visit Provider Nurse Practitioner Family
DX: N20.0 Calculus of kidney (principal)
CPT/HCPCS: 82340; 82507; 82570; 83735; 83945; 83986; 84105; 84133; 84300; 84392; 84560